=== PATIENT | male | born 1955 | race Caucasian/White ===

== ENCOUNTER 2017-04-27 16:36 | Emergency (ER) | payer BC ==
[2017-04-27] MEDS ORDERED: NS 0.9% 1000 ML* 1,000 ML IV SCH (18:00)
--- NOTE | 2017-04-27 18:29 | RAD ---
Indication: Chest pain. Single frontal view of the chest performed at 1758 hours was reviewed. No prior study is available. No mediastinal shift is noted. Heart is of normal size and configuration. Lung hightower appear clear. Pacemaker leads are in place. IMPRESSION: NO ACTIVE CARDIOPULMONARY DISEASE IS NOTED.
[2017-04-27 18:36] LABS: Hematocrit 43 % (42-52); Mean Corpuscular HGB Conc 35 g/dl (31-36); Mean Corpuscular Hemoglobin 32 pg (27-31); Mean Corpuscular Volume 93 fL (80-94); Mean Platelet Volume 8 um3 (7.4-10.4); Red Blood Count 4.66 10^6/ul (4.0-5.4); Red Cell Distribution Width 13 % (10.5-15); White Blood Count 8.5 10^3/ul (3.5-10.8)
[2017-04-27 18:52] LABS: Albumin 4.1 g/dL (3.2-5.2); BUN/Creatinine Ratio 18.4 (8-20); C Reactive Protein 3.22 mg/L (< 5.00); Calcium 9.5 mg/dL (8.6-10.3); EGFR African American 134.1 (>60); EGFR Non-African American 104.3 (>60); Globulin 2.9 g/dL (2-4); Magnesium 2.2 mg/dL (1.9-2.7); Potassium 4.1 mmol/L (3.5-5.0); Total Bilirubin 0.8 mg/dL (0.2-1.0)
[2017-04-27 19:14] LABS: TSH (Thyroid Stimulating Horm) 1.34 mcIU/mL (0.34-5.60)
--- NOTE | 2017-04-27 20:01 | ED ---
Shalom Rocha Alfonso, scribed for Baljit Lieberman MD on 04/27/17 at 1935 . HPI Chest Pain - HPI Summary HPI Summary: This patient is a 61 year old M [facility] by with a chief complaint of CP since 2 days ago. The CP is worse since 0300 today. The CC is described as discomfort and burning. The patient rates the pain at its worst 7/10 and currently 3/10 in severity. Symptoms aggravated by nothing. Symptoms alleviated by nothing. Patient reports chills, upper back pain, abdominal pain, and headache. Patient denies diaphoresis, SOB, and nausea. PMHx incudes pacemaker, and asthma. Medications reviewed. - History of Current Complaint Chief Complaint: EDChestPainROMI Time Seen by Provider: 04/27/17 19:20 Hx Obtained From: Patient Onset/Duration: Started Days Ago - 2, Resolved - 299 today Timing: Constant Initial Severity: Moderate Current Severity: Moderate Pain Intensity: 7 - at worse. 3/10 currently Pain Scale Used: 0-10 Numeric Character: Other: - discomfort and burning Aggravating Factor(s): Nothing Alleviating Factor(s): Nothing Associated Signs and Symptoms: Positive: Other: - Patient reports chills, upper back pain, and headache. Patient denies diaphoresis, SOB, abdominal pain, and nausea. - Allergy/Home Medications Allergies/Adverse Reactions: Allergies Allergy/AdvReac Type Severity Reaction Status Date / Time No Known Allergies Allergy Verified 04/27/17 16:43 Home Medications: Home Medications Aspirin EC Low Dose* [Ecotrin EC Low Dose 81 MG*] 1 tab PO DAILY 04/27/17 [ History Confirmed 04/27/17] Carvedilol TAB* [Coreg TAB*] 1 tab PO BID 04/27/17 [History Confirmed 04/27/17] Fluticasone-Salmeterol 100-50* [Advair Diskus 100-50*] 1 puff INH BID 04/27/17 [ History Confirmed 04/27/17] Multiple Vitamins W/ Minerals [Multi Vitamin and Mineral] 1 tab PO DAILY [History Confirmed 04/27/17] Simvastatin [Zocor 40 MG (NF)] 1 tab PO DAILY 04/27/17 [History Confirmed ] Valsartan TAB* [Diovan TAB*] 80 mg PO DAILY 04/27/17 [History Confirmed 04/27/17 ] PMH/Surg Hx/FS Hx/Imm Hx Cardiovascular History: Reports: Hx Pacemaker/ICD Respiratory History: Reports: Hx Asthma - INHAILER Infectious Disease History: Yes Infectious Disease History: Denies: Traveled Outside the [place] in Last 30 Days - Family History Known Family History: Negative: Blood Disorder - Social History Alcohol Use: Weekly Alcohol Amount: every other night - couple of beers or wine Substance Use Type: Reports: None Smoking Status (MU): Former Smoker Review of Systems Positive: Chills. Negative: Skin Diaphoresis Positive: Chest Pain Negative: Shortness Of Breath Negative: Abdominal Pain, Nausea Positive: Other - upper back pain Positive: Headache All Other Systems Reviewed And Are Negative: Yes Physical Exam Triage Information Reviewed: Yes Vital Signs On Initial Exam: Initial Vitals Temp Pulse Resp BP Pulse Ox 97.7 F 65 16 164/97 98 04/27/17 16:43 04/27/17 16:43 04/27/17 16:43 04/27/17 16:43 04/27/17 16:43 Vital Signs Reviewed: Yes Appearance: Positive: Well-Appearing, No Pain Distress Skin: Positive: Warm, Skin Color Reflects Adequate Perfusion, Dry Head/Face: Positive: Normal Head/Face Inspection Eyes: Positive: EOMI, MARIE ENT: Positive: Normal ENT inspection Neck: Positive: Supple, Nontender Respiratory/Lung Sounds: Positive: Clear to Auscultation, Breath Sounds Present Cardiovascular: Positive: RRR Abdomen Description: Positive: Nontender, Soft Bowel Sounds: Positive: Present Musculoskeletal: Positive: Normal, Strength/ROM Intact Neurological: Positive: Normal, Sensory/Motor Intact, Alert, Oriented to Person Place, Time Psychiatric: Positive: Affect/Mood Appropriate - Faustina Coma Scale Coma Scale Total: 15 Diagnostics - Vital Signs Vital Signs Temp Pulse Resp BP Pulse Ox 04/27/17 19:00 74 14 135/85 97 04/27/17 18:30 71 20 133/77 97 04/27/17 18:00 67 16 147/74 97 04/27/17 17:31 98.2 F 70 16 139/88 98 04/27/17 17:30 59 12 139/88 98 04/27/17 17:26 14 146/116 04/27/17 16:43 97.7 F 65 16 164/97 98 - Laboratory Lab Results: Lab Results 04/27/17 04/27/17 04/27/17 Range/Units 18:27 18:27 18:27 WBC (3.5-10.8) 10^3/ul RBC (4.0-5.4) 10^6/ul Hgb (14.0-18.0) g/dl Hct (42-52) % MCV (80-94) fL MCH (27-31) pg MCHC (31-36) g/dl RDW (10.5-15) % Plt Count (150-450) 10^3/ul MPV (7.4-10.4) um3 Neut % (Auto) (38-83) % Lymph % (Auto) (25-47) % [place] % (Auto) (1-9) % Eos % (Auto) (0-6) % Baso % (Auto) (0-2) % Absolute Neuts (auto) (1.5-7.7) 10^3/ul Absolute Lymphs (auto) (1.0-4.8) 10^3/ul Absolute Monos (auto) (0-0.8) 10^3/ul Absolute Eos (auto) (0-0.6) 10^3/ul Absolute Basos (auto) (0-0.2) 10^3/ul Absolute Nucleated RBC 10^3/ul Nucleated RBC % INR (Anticoag Therapy) 0.94 (0.89-1.11) APTT 27.3 (26.0-36.3) seconds D-Dimer, Quantitative < 200 (Less Than 230) ng/mL Sodium 136 (133-145) mmol/L Potassium 4.1 (3.5-5.0) mmol/L Chloride 101 (101-111) mmol/L Carbon Dioxide 30 (22-32) mmol/L Anion Gap 5 (2-11) mmol/L BUN 14 (6-24) mg/dL Creatinine 0.76 (0.67-1.17) mg/dL Est GFR ( Amer) 134.1 (>60) Est GFR (Non-Af Amer) 104.3 (>60) BUN/Creatinine Ratio 18.4 (8-20) Glucose 97 (70-100) mg/dL Lactic Acid (0.5-2.0) mmol/L Calcium 9.5 (8.6-10.3) mg/dL Magnesium 2.2 (1.9-2.7) mg/dL Total Bilirubin 0.80 (0.2-1.0) mg/dL AST 24 (13-39) U/L ALT 29 (7-52) U/L Alkaline Phosphatase 60 (34-104) U/L Total Creatine Kinase 208 (10-223) U/L CK-MB (CK-2) 8.3 H (0.6-6.3) ng/mL Troponin I 0.00 (<0.04) ng/mL C-Reactive Protein 3.22 (< 5.00) mg/L B-Natriuretic Peptide 67 ( - 100) pg/mL Total Protein 7.0 (6.4-8.9) g/dL Albumin 4.1 (3.2-5.2) g/dL Globulin 2.9 (2-4) g/dL Albumin/Globulin Ratio 1.4 (1-3) Lipase 161 H (11.0-82.0) U/L TSH 1.34 (0.34-5.60) mcIU/mL 04/27/17 04/27/17 Range/Units 18:27 18:27 WBC 8.5 (3.5-10.8) 10^3/ul RBC 4.66 (4.0-5.4) 10^6/ul Hgb 15.0 (14.0-18.0) g/dl Hct 43 (42-52) % MCV 93 (80-94) fL MCH 32 H (27-31) pg MCHC 35 (31-36) g/dl RDW 13 (10.5-15) % Plt Count 226 (150-450) 10^3/ul MPV 8 (7.4-10.4) um3 Neut % (Auto) 70.2 (38-83) % Lymph % (Auto) 19.6 L (25-47) % [place] % (Auto) 7.4 (1-9) % Eos % (Auto) 1.8 (0-6) % Baso % (Auto) 1.0 (0-2) % Absolute Neuts (auto) 6.0 (1.5-7.7) 10^3/ul Absolute Lymphs (auto) 1.7 (1.0-4.8) 10^3/ul Absolute Monos (auto) 0.6 (0-0.8) 10^3/ul Absolute Eos (auto) 0.2 (0-0.6) 10^3/ul Absolute Basos (auto) 0.1 (0-0.2) 10^3/ul Absolute Nucleated RBC 0 10^3/ul Nucleated RBC % 0 INR (Anticoag Therapy) (0.89-1.11) APTT (26.0-36.3) seconds D-Dimer, Quantitative (Less Than 230) ng/mL Sodium (133-145) mmol/L Potassium (3.5-5.0) mmol/L Chloride (101-111) mmol/L Carbon Dioxide (22-32) mmol/L Anion Gap (2-11) mmol/L BUN (6-24) mg/dL Creatinine (0.67-1.17) mg/dL Est GFR ( Amer) (>60) Est GFR (Non-Af Amer) (>60) BUN/Creatinine Ratio (8-20) Glucose (70-100) mg/dL Lactic Acid 0.8 (0.5-2.0) mmol/L Calcium (8.6-10.3) mg/dL Magnesium (1.9-2.7) mg/dL Total Bilirubin (0.2-1.0) mg/dL AST (13-39) U/L ALT (7-52) U/L Alkaline Phosphatase (34-104) U/L Total Creatine Kinase (10-223) U/L CK-MB (CK-2) (0.6-6.3) ng/mL Troponin I (<0.04) ng/mL C-Reactive Protein (< 5.00) mg/L B-Natriuretic Peptide ( - 100) pg/mL Total Protein (6.4-8.9) g/dL Albumin (3.2-5.2) g/dL Globulin (2-4) g/dL Albumin/Globulin Ratio (1-3) Lipase (11.0-82.0) U/L TSH (0.34-5.60) mcIU/mL Result Diagrams: 04/27/17 18:27 04/27/17 18:27 Lab Statement: Any lab studies that have been ordered have been reviewed, and results considered in the medical decision making process. - Radiology CXR Radiology Interpretation Completed By: Radiologist - NO ACTIVE CARDIOPULMONARY DISEASE IS NOTED. ED physician has reviewed this radiology report and agrees. - EKG 1652 Cardiac Rate: NL - BPM 60 EKG Interpretation: Atrial-ventricular dual-paced rhythm. Chest Pain Course/Dx - Course Course Of Treatment: DISCUSSED RESULTS WITH PATIENT/. DISCUSSED ADMISSION FOR THE CHEST PAIN. PATIENT DECLINED ADMISSION; HE PREFERS TO F/U WITH HIS SHELL TRIM OPERATOR. HE WILL RETURN IF HE WORSENS. - Diagnoses Provider Diagnoses: Chest pain, Elevated lipase Discharge - Discharge Plan Condition: Stable Disposition: HOME Patient Education Materials: Chest Pain (ED) Referrals: [facility] PHYSICIAN REFERRAL [Outside] Dank Skinner MD [Medical Doctor] - Additional Instructions: FOLLOW UP WITH YOUR PRIMARY CARE DOCTOR AND YOUR SHELL TRIM OPERATOR FOR YOUR CHEST PAIN AND ELEVATED LIPASE. DISCUSS HAVING A CARDIAC STRESS TEST. RETURN TO THE EMERGENCY DEPARTMENT FOR ANY WORSENING OF YOUR CONDITION; PAIN, SHORTNESS OF BREATH, YOU FEEL ILL OR QUESTIONS OR CONCERNS. The documentation as recorded by the Shalom watt Alfonso accurately reflects the service I personally performed and the decisions made by me, Baljit Lieberman MD.
[2017-04-27 20:20] LABS: Urine Bilirubin Negative (Negative); Urine Glucose Negative (Negative); Urine Nitrite Negative (Negative)
[2017-04-27 20:21] VITALS: BP 136/76
== END 2017-04-27 20:16 | disposition home or self-care (01) ==
LOC: ED 16:36
DX: M54.9 Dorsalgia, unspecified (principal); R51 Headache; R07.9 Chest pain, unspecified; Z87.891 Personal history of nicotine dependence; R74.8 Abnormal levels of other serum enzymes
CPT/HCPCS: 36415; 71010; 80053; 81003; 82550; 82553; 83605; 83690; 83735; 83880; 84443; 84484; 85025; 85379; 85610; 85730; 86140; 93005; 96360; 99282

== ENCOUNTER 2019-10-19 22:44 | Emergency (ER) | payer BC ==
--- OUTSIDE RECORDS SUMMARY | 2019-10-19 22:56 | XMS REPORT | Continuity of Care Document ---
:1955 External Reference #:[id number] Author Name DURAN Mayorga Address [address] [place] [address] Care Team Providers Name Role Phone Phil Valentine MD - Family Care Team Information Imaging Specialist Medicine Problems Description No Information Available Social History Type Date Description Comments Sex Unknown Tobacco Use Start: Unknown Nonsmoker ETOH Use Occasionally consumes alcohol Tobacco Use Start: Unknown Nonsmoker Smoking Status Reviewed: 01/10/19 Nonsmoker Exercise Exercises regularly walking and hiking Type/Frequency Seat Belt/Car Seat Always uses seat belt Allergies, Adverse Reactions, Alerts Description No Known Drug Allergies Medications Active Medications SIG Qnty Indications Ordering Provider Date Valtrex 1 tablet three 21tabs B02.9 Carter Smith, 10/03/2019 1gm Tablets times a day for M.D. 7 days. Gabapentin 1 by mouth 90caps Phil No 02/07/2019 300mg nightly for a MD Serge Capsules week. May increase to 3x/day prn afterward. Dicyclomine HCL 1 by mouth four 60caps Imelda 07/14/2018 10mg times a day as Efren, SHELF DRIER OPERATOR Capsules needed diarrhea and cramping Advair Diskus inhale one puff 180units Phil No by mouth twice a MD Serge 100-50mcg/Dose day Aerosol Carvedilol 1 by mouth twice Unknown 6.25mg a day Tablets Losartan Potassium 1 by mouth every Unknown day 25mg Tablets Zolpidem Tartrate ER take one tablet 30tabs Phil No by mouth at MD Serge 12.5mg Tablets ER bedtime maximum daily dose = one tablet Aspirin 81 Low Dose 1 by mouth every Unknown day 81mg Chewtabs Multi Vitamin once daily otc Unknown Tablets Simvastatin 1 by mouth every 90tabs Phil T. 40mg day MD Serge Tablets Albuterol Sulfate 1-2 puffs q4hrs Unknown as needed Powder Immunizations CPT Code Status Date Vaccine Lot # [id number] Given 01/10/2019 Pneumococcal Immunization [id number] Vital Signs Date Vital Result Comment 10/03/2019 10:54am BP Systolic 138 mmHg BP Diastolic 72 mmHg Heart Rate 64 /min Body Temperature 96.8 F Respiratory Rate 20 /min Weight 199.12 lb shoes/coat on 05/14/2019 3:16pm BP Systolic 120 mmHg BP Diastolic 72 mmHg Heart Rate 80 /min Body Temperature 97.9 F Respiratory Rate 20 /min Weight 188.00 lb Results Test Acquired Date Facility Test Result H/L Range Note Laboratory test 08/13/2019 [facility] [place]ine 329 U/L High 10-223 finding Kinase(CK) Aldolase 8.1 U/L Abnormal <7.7 1 Linda Igg AB Reflex 08/13/2019 [facility] SS-A/Ro Antibody <0.2 U 2 SS-B/La Antibody <0.2 U 3 Sm (Edmonds) IgG Antibody <0.2 U 4 TRAINING LEAD Antibody, IgG <0.2 U 5 Scl-70 (Scleroderma) Antibody <0.2 U 6 Sybil-1 Antibody <0.2 U 7 Laboratory test finding 08/13/2019 [facility] [place] Smooth Muscle Antibody Negative Negative 8 Anti Double Stranded Dna AB <12.3 IU/mL 9 Comprehensive Metabolic 05/14/2019 [facility]ma) Sodium 137 mEq/L 134-149 Prof Potassium 4.3 mEq/L 3.6-5.5 Chloride 101 mEq/L 94-112 Carbon Dioxide 26 mEq/L 21-32 Glucose 96 mg/dL 70-105 BUN 17 mg/dL 6-26 Creatinine 0.7 mg/dL 0.6-1.4 BUN/Creat Ratio 24.3 CALC 8.0-36.0 Calcium 9.4 mg/dL 8.6-10.2 Total Protein 7.2 g/dL 6.4-8.3 Albumin 4.5 g/dL 3.8-5.5 Globulin 2.7 g/dL 2.0-4.8 A/G Ratio 1.7 CALC 0.6-2.3 Alk. Phosphatase 74 U/L 22-95 Alt (SGPT) 33 U/L 7-35 Ast (Sgot) 25 U/L 5-34 Total Bilirubin 0.6 mg/dL 0.2-1.3 GFR Non- >60 ml/min/1.73m^ >=60 GFR >60 ml/min/1.73m^ >=60 Laboratory test 05/14/2019 [facility](fma) Amylase, Serum 135 U/L High 20-105 10 finding Uric Acid 6.7 mg/dL 2.5-9.2 Laboratory test 05/14/2019 [facility] Lipase 26 U/L 13-78 11 finding [address] [place] [address] (030)- - Rheumatoid 05/14/2019 [facility] Ra Latex Turbid. <10.0 IU/mL 0.0-13.9 Arthritis Factor [address] [facility] ([facility] [place] [address] (174)- - Laboratory test 05/14/2019 [facility] Antinuclear Negative [address] [place] [address] Antibodies, [place] [address] (620)- - C-Reactive Protein, Quant 6 mg/L 0-10 1 This result may be falsely elevated. Hemoglobin contamination was observed in this sample, and hemolysis increases Aldolase results. Interpret results with caution. Test Performed by: [place] [address] Sales Financial Analyst: Baljit Toscano M.D. Ph.D.; IA# [id number] 2 REFERENCE VALUE <1.0 (Negative) 3 REFERENCE VALUE <1.0 (Negative) 4 REFERENCE VALUE <1.0 (Negative) 5 REFERENCE VALUE <1.0 (Negative) 6 REFERENCE VALUE <1.0 (Negative) 7 REFERENCE VALUE <1.0 (Negative) Test Performed by: [facility] [address] Sales Financial Analyst: Baljit Toscano M.D. Ph.D.; CLIA# [id number] 8 ADDITIONAL INFORMATION This test was developed and its performance characteristics determined by [facility] in a manner consistent with CLIA requirements. This test has not been cleared or approved by the U.S. Food and Drug Administration. Test Performed by: [facility] [address] Sales Financial Analyst: Baljit Toscano M.D. Ph.D.; CLIA# [id number] 9 REFERENCE VALUE <30.0 (Negative) Test Performed by: [facility] [place] [address] Sales Financial Analyst: Baljit Toscano M.D. Ph.D.; CLIA# [id number] 10 consistent w/ previous results 11 3 Gold Top SSTs 12 Negative <1:80 Borderline 1:80 Positive >1:80 Procedures Date Code Description Status 09/06/2018 09721091 Colonoscopy Completed Medical Devices Description No Information Available Encounters Type Date Location Provider Dx Diagnosis Office Visit 05/14/2019 [facility] Office Phil No R74.0 Nonspec elev of 3:30p MD Serge levels of transamns & lactic acid dehydrgnse K76.0 Fatty (change of) liver, not elsewhere classified M79.672 Pain in left foot Assessments Date Code Description Provider 10/03/2019 B02.9 Zoster without complications DURAN Mayorga 05/14/2019 R74.0 Nonspecific elevation of levels of Phil Valentine MD transaminase and lactic acid dehydrogenase [LDH] 05/14/2019 K76.0 Fatty (change of) liver, not elsewhere Phil Valentine MD classified 05/14/2019 M79.672 Pain in left foot Phil Valentine MD Plan of Treatment Future Appointment(s):10/25/2019 9:40 am - Phil Valentine MD at [id number]/03/2019 - Mary Singleton, PAB02.9 Zoster without complicationsNew Medication:Valtrex 1 gm - 1 tablet three times a day for 7 days.Comments:Start Valtrex 1000 mg every 8 hours for the next week Use thick lotion Avoid people, those on chemotherapy. Wash towels frequently let me know if you need something for the painAllComments:PCMHMedication Management Patient Understands medications he's taking? Yes Are there Barriers to Adherence? No Has the patient been asked about herbal supplements and therapies, and OTC meds ? Yes Care Plan1. Patient has been queried about patient's goals/ preferences and functional/lifestyle goals at relevant visits. Yes If relevant, describe: N/A2. Treatment goals as explained to the patient: above3. Are there barriers to meeting treatment goals? No If Yes, please describe:4. Self-Management goals as described to the patient: Yes As always, we strongly encourage a healthy diet and making physical activity a part of your every day life. If you have questions about how or where to start, please contact the office. Functional Status Description No Information Available Mental Status Description No Information Available Referrals Refer to Reason for Referral Status Appt Date Phil Ashraf MD consult and treat jw Scheduled 06/12/2019 [address], [place] [address] [phone]
--- OUTSIDE RECORDS SUMMARY | 2019-10-19 22:56 | XMS REPORT | Continuity of Care Document ---
:1955 External Reference #:[id number] Author Name Phil Valentine MD Address [address] [place] [address] Care Team Providers Name Role Phone Phil Valentine MD - Family Care Team Information Manufacturing Engineer Medicine Problems Description No Information Available Social [...] Medications Active Medications SIG Qnty Indications Ordering Date Provider Acyclovir one po daily for 90tabs B02.9 Phil No 10/18/2019 800mg shingles MD Serge Tablets suppression Gabapentin 1 by mouth nightly 90caps Phil No 02/07/2019 300mg for a week. December MD Serge Capsules increase to 3x/day prn afterward. Dicyclomine HCL 1 by mouth four 60caps Phil No 07/14/2018 times a day as MD Serge 10mg Capsules needed diarrhea and cramping Advair Diskus inhale one puff by 180units Phil No mouth twice a day MD Serge 100-50mcg/Dose Aerosol Carvedilol 1 by mouth twice a Unknown 6.25mg day Tablets Losartan Potassium 1 by mouth every Unknown day 25mg Tablets Zolpidem Tartrate take one tablet by 30tabs Phil No ER mouth at bedtime MD Serge 12.5mg Tablets maximum daily dose ER = one tablet Aspirin 81 Low Dose 1 by mouth every Unknown day 81mg Chewtabs Multi Vitamin once daily otc Unknown Tablets Simvastatin 1 by mouth every 90tabs Phil T. 40mg day MD Serge Tablets Albuterol Sulfate 1-2 puffs q4hrs as Unknown needed Powder History Medications Valtrex 1 tablet three 21tabs B02.9 Carter Smith, 10/03/2019 - 1gm times a day for 7 M.D. 10/18/2019 Tablets days. Immunizations CPT Code Status Date Vaccine Lot # [id number] Given 01/10/2019 Pneumococcal Immunization [id number] Vital Signs Date Vital Result Comment 10/18/2019 8:42am BP Systolic 128 mmHg BP Diastolic 76 mmHg Heart Rate 68 /min Body Temperature 97.9 F Respiratory Rate 16 /min Weight 199.00 lb 10/03/2019 10:54am BP Systolic 138 mmHg BP Diastolic 72 mmHg Heart Rate 64 /min Body Temperature 96.8 F Respiratory Rate 20 /min Weight 199.12 lb shoes/coat on Results Test Acquired Date Facility Test Result H/L Range Note Laboratory test 10/18/2019 [facility](a) Ferritin <pending> 6-115 finding B12 <pending> 230-1050 TSH <pending> 0.5-5.0 Laboratory test finding 10/18/2019 [facility] [place] Reactive Protein <pending> Syphillis Igg W/Reflex RPR <pending> Laboratory test finding 08/13/2019 [facility] [place] Creatine Kinase(CK) 329 U/L High 10-223 Aldolase 8.1 U/L Abnormal <7.7 1 Linda Igg AB Reflex 08/13/2019 [facility] [place]-A/Ro Antibody <0.2 U 2 SS-B/La Antibody <0.2 U 3 Sm (Edmonds) IgG Antibody <0.2 U 4 HYDROTHERAPIST Antibody, IgG <0.2 U 5 Scl-70 (Scleroderma) Antibody <0.2 U 6 Ysbil-1 Antibody <0.2 U 7 Laboratory test finding 08/13/2019 [facility] [place] Smooth Muscle Antibody Negative Negative 8 Anti [...] Lipase 26 U/L 13-78 11 finding [address] [place] [address] (609)- - Rheumatoid 05/14/2019 [facility] Ra Latex Turbid. <10.0 IU/mL 0.0-13.9 Arthritis Factor [address] [facility] ([facility] [place] [address] (600)- - Laboratory test 05/14/2019 [facility] Antinuclear Negative [address] [place] [address] Antibodies, [place] [address] (608)- - C-Reactive Protein, Quant 6 mg/L 0-10 1 This result may be falsely elevated. Hemoglobin contamination was observed in this sample, and hemolysis increases Aldolase results. Interpret results with caution. Test Performed by: [facility] [employer] - [address] [address] Parking Regulation Enforcement Officer: Baljit Toscano M.D. Ph.D.; IA# [id number] 2 REFERENCE VALUE <1.0 (Negative) 3 REFERENCE VALUE <1.0 (Negative) 4 REFERENCE VALUE <1.0 (Negative) 5 REFERENCE VALUE <1.0 (Negative) 6 REFERENCE VALUE <1.0 (Negative) 7 REFERENCE VALUE <1.0 (Negative) Test Performed by: [place] [address] Parking Regulation Enforcement Officer: Baljit Toscano M.D. Ph.D.; CLIA# [id number] 8 ADDITIONAL INFORMATION This test was developed and its performance characteristics determined by [facility] in a manner consistent with CLIA requirements. This test has not been cleared or approved by the U.S. Food and Drug Administration. Test Performed by: [place] [address] Parking Regulation Enforcement Officer: Baljit Toscano M.D. Ph.D.; CLIA# [id number] 9 REFERENCE VALUE <30.0 (Negative) Test Performed by: [facility] [address] [place] [address] Parking Regulation Enforcement Officer: Baljit Toscano M.D. Ph.D.; CLIA# [id number] 10 consistent w/ previous results 11 3 Gold Top SSTs 12 Negative <1:80 Borderline 1:80 Positive >1:80 Procedures Date Code Description Status 09/06/2018 [id number] Colonoscopy Completed Medical Devices Description No Information Available Encounters Type Date Location Provider Dx Diagnosis Office Visit 10/03/2019 [facility] Office Mary Singleton, B02.9 Zoster without 11:00a PA complications Office Visit 05/14/2019 [facility] Office Phil No R74.0 Nonspec elev of 3:30p MD Serge levels of transamns & lactic acid dehydrgnse K76.0 Fatty (change of) liver, not elsewhere classified M79.672 Pain in left foot Assessments Date Code Description Provider 10/18/2019 B02.9 Zoster without complications Phil Valentine MD 10/18/2019 M79.672 Pain in left foot Phil Valentine MD 10/03/2019 B02.9 Zoster without complications DURAN Mayorga 05/14/2019 R74.0 Nonspecific elevation of levels of Phil Valentine MD transaminase and lactic acid dehydrogenase [LDH] 05/14/2019 K76.0 Fatty (change of) liver, not elsewhere Phil Valentine MD classified 05/14/2019 M79.672 Pain in left foot Phil Valentine MD Plan of Treatment 10/18/2019 - Phil Valentine MDB02.9 Zoster without complicationsNew Medication:Acyclovir 800 mg - one po daily for shingles [id number] Pain in left footNew Xrays:CT Lumbar Spine W/O Contrast, Ordered: 10/18/19AllComments :Medication Management Patient Understands medications he's taking? Yes No Are there Barriersto Adherence? Yes No Has the patient been asked about herbal supplements and therapies, and OTC meds? Yes No Functional Status Description No Information Available Mental Status Description No Information Available Referrals Refer to Reason for Referral Status Appt Date Phil Ashraf MD consult and treat jw Scheduled 06/12/2019 [address], [place] [address] [phone]
--- NOTE | 2019-10-20 00:08 | ED ---
Lower Extremity - HPI Summary HPI Summary: 64-year-old male presents to the emergency department today complaining of right calf pain which began approximately 3 days ago. Patient also endorses swelling of the right knee and lower extremity. There is no evidence of ecchymosis or erythema. Patient states she was recently diagnosed with shingles and placed on antivirals however this is resolving. Patient states his pain is made worse with ambulation and the dorsiflexion of the right foot. Patient denies recent travel, recent surgery, recent immobilization. Patient otherwise feels well and denies fever, chest pain, abdominal pain, pain with urination, rash, nausea, vomiting, diarrhea. Surgical history and family history is noncontributory. Patient denies personal or family history of blood clots. Pt denies trauma to the leg. - History of Current Complaint Chief Complaint: EDExtremityLower Stated Complaint: SWOLLEN RT LEG/ABD PAIN PER PT Time Seen by Provider: 10/20/19 00:05 Hx Obtained From: Patient Onset of Pain: Days Onset/Duration: Days Severity Initially: Moderate Severity Currently: Moderate Pain Intensity: 8 Pain Scale Used: 0-10 Numeric Timing: Constant Character Of Pain: Aching Associated Signs And Symptoms: Positive: Swelling. Negative: Redness Aggravating Factor(s): Standing, Ambulation, Movement, Weight Bearing Alleviating Factor(s): Rest Able to Bear Weight: Yes - Allergies/Home Medications Allergies/Adverse Reactions: Allergies Allergy/AdvReac Type Severity Reaction Status Date / Time No Known Allergies Allergy Verified 10/19/19 22:46 Home Medications: Home Medications Carvedilol TAB* [Coreg TAB*] 1 tab PO BID 04/27/17 [History Confirmed 09/06/18] Fluticasone-Salmeterol 100-50* [Advair Diskus 100-50*] 1 puff INH BID 04/27/17 [ History Confirmed 09/06/18] Simvastatin [Zocor 40 MG (NF)] 80 mg PO DAILY 04/27/17 [History Confirmed ] Losartan Potassium 25 mg PO DAILY 08/30/18 [History Confirmed 09/06/18] Zolpidem Tartrate [Zolpidem Tartrate ER] 12.5 mg PO DAILY 08/30/18 [History Confirmed 09/06/18] PMH/Surg Hx/FS Hx/Imm Hx Endocrine/Hematology History: Denies: Hx Diabetes Cardiovascular History: Reports: Hx Hypertension, Hx Pacemaker/ICD Respiratory History: Reports: Hx Asthma - INHAILER History: Denies: Hx Dialysis, Hx Renal Disease - Surgical History Surgery Procedure, Year, and Place: vasectomy, Defibulator Infectious Disease History: No Infectious Disease History: Denies: Traveled Outside the [place] in Last 30 Days - Family History Known Family History: Negative: Blood Disorder - Social History Alcohol Use: Weekly Alcohol Amount: every other night - couple of beers or wine Substance Use Type: Reports: None Smoking Status (MU): Former Smoker Review of Systems Constitutional: Negative Eyes: Negative ENT: Negative Cardiovascular: Negative Respiratory: Negative Gastrointestinal: Negative Genitourinary: Negative Positive: Myalgia, Edema Skin: Negative Neurological/Mental Status: Negative Psychological: Normal All Other Systems Reviewed And Are Negative: Yes Physical Exam - Summary Physical Exam Summary: Patient is in no acute distress. Patient is able to ambulate with normal gait. There is mild edema noted to the right lower extremity with no evidence of erythema or ecchymosis. Patient has a 2+ dorsalis pedis pulses and 2+ posterior tibialis pulse. There is brisk capillary refill. Patient has full range of motion at the knee and ankle. Triage Information Reviewed: Yes Vital Signs On Initial Exam: Initial Vitals Temp Pulse Resp BP Pulse Ox 98.0 F 86 18 158/103 98 10/19/19 22:46 10/19/19 22:46 10/19/19 22:46 10/19/19 22:46 10/19/19 22:46 Vital Signs Reviewed: Yes Appearance: Positive: Well-Appearing, No Pain Distress, Well-Nourished Skin: Positive: Warm, Skin Color Reflects Adequate Perfusion Eyes: Positive: EOMI, MARIE ENT: Positive: Hearing grossly normal Respiratory/Lung Sounds: Positive: Clear to Auscultation, Breath Sounds Present Cardiovascular: Positive: RRR, S1, S2 Abdomen Description: Positive: Nontender, Soft Musculoskeletal: Positive: Strength/ROM Intact Neurological: Positive: Sensory/Motor Intact, Alert, Oriented to Person Place, Time, Normal Gait, Facial Symmetry, Speech Normal Psychiatric: Positive: Normal, Affect/Mood Appropriate AVPU Assessment: Alert Procedures - Sedation Patient Received Moderate/Deep Sedation with Procedure: No Diagnostics - Vital Signs Vital Signs Temp Pulse Resp BP Pulse Ox 10/19/19 22:46 98.0 F 86 18 158/103 98 - Laboratory Lab Statement: Any lab studies that have been ordered have been reviewed, and results considered in the medical decision making process. Lower Extremity Course/Dx - Course Course Of Treatment: Patient was evaluated in the emergency department today for swelling to the right lower extremity. Vitals noted and stable. Patient was able to ambulate and had a normal neurovascular exam of the lower extremities. Full range of motion. DVT study of the right lower extremity was done which showed no evidence of DVT. Patient was discharged for outpatient follow-up. - Diagnoses Differential Diagnosis/HQI/PQRI: Positive: DVT, Fracture (Closed), Sprain, Strain Provider Diagnoses: Leg pain Discharge ED - Sign-Out/Discharge Documenting (check all that apply): Patient Departure - Discharge Plan Condition: Stable Disposition: HOME Patient Education Materials: Knee Pain (ED) Referrals: Phil Valentine MD [Primary Care Provider] - 3 Days Additional Instructions: You were seen in the emergency department today due to knee pain. Ultrasound was done which showed no evidence of blood clot in your leg. Please follow-up with your primary care provider in 3-5 days for further evaluation and management. Please return to the emergency department immediately if you develop any new or worsening symptoms. - Billing Disposition and Condition Condition: STABLE Disposition: Home
[2019-10-20 01:07] VITALS: BP 160/90
== END 2019-10-20 01:07 | disposition home or self-care (01) ==
LOC: ED 22:44
DX: M79.661 Pain in right lower leg (principal); I10 Essential (primary) hypertension; J45.909 Unspecified asthma, uncomplicated; Z95.810 Presence of automatic (implantable) cardiac defibrillator; Z79.899 Other long term (current) drug therapy; Z87.891 Personal history of nicotine dependence
CPT/HCPCS: 99282